=== PATIENT | male | born 1965 | race Caucasian/White ===

== ENCOUNTER 2023-06-18 08:47 | Observation (INO) ==
[2023-06-18] MEDS ORDERED: Lactated Ringers 1000 ml BAG 1,000 ML IV ONE ×2 (09:35→11:37)
[2023-06-18] MEDS ORDERED: Ondansetron 4 mg VIAL 2 MG/ML 2 ml VIAL IV ONE ×2 (09:35→13:18)
[2023-06-18 10:23] LABS: ABS Eosinophils 0.2 10^3/uL (0.0-0.5); ABS Lymphocytes 1.5 10^3/uL (1.0-4.8); ABS Monocytes 0.7 10^3/uL (0.0-1.1); ABS Neutrophils 6.6 10^3/uL (1.5-7.6); ABS Nucleated RBC 0.01 10^3/ul; Eosinophil % 2.5 %; Hematocrit 35.5 % (38-53); Hemoglobin 12.2 g/dL (13.2-16.3); Lymphocyte % 16.8 %; Mean Corpuscular Hemoglobin 31.4 pg (27-33); Mean Corpuscular Hgb Conc 34.5 g/dL (31-36); Mean Platelet Volume 8.2 fL (7.5-11.2); Nucleated Red Blood Cells % 0.1 /100 WBC (0.0-0.4); Platelet Count 281 10^3/uL (150-450); Red Cell Distribution Width 13.8 % (12-17)
[2023-06-18 10:39] LABS: Albumin 3.5 g/dL (3.2-5.2); Albumin/Globulin Ratio 1.2 (1-3); C Reactive Protein 56.41 mg/L (<8.01); Calcium 7.7 mg/dL (8.6-10.3); Creatinine, Serum 10.72 mg/dL (0.67-1.17); Globulin 2.9 g/dL (2-4); Potassium 3.5 mmol/L (3.5-5.0); Total Bilirubin 0.6 mg/dL (0.2-1.0); Total Protein 6.4 g/dL (6.4-8.9)
[2023-06-18] MEDS ORDERED: Prochlorperazine 5 mg/ml 2 ml VIAL (10 mg) IV PRN (14:36)
[2023-06-18 14:37] LABS: Alcohol, S < 13 mg/dL (<13)
[2023-06-18] MEDS ORDERED: Ondansetron 4 mg VIAL 2 MG/ML 2 ml VIAL IV PRN (14:37)
[2023-06-18] MEDS ORDERED: Heparin 5000 UNITS/ML 1 mL VIAL SUBCUT SCH (15:00)
[2023-06-18 15:51] LABS: Activated Partial Thrombo Time 30.1 seconds (26.0-38.0); INR 1.05 (0.88-1.18)
[2023-06-18] MEDS: Lactated Ringers 1000 ml BAG 1,000 ML IV SCH ×3 (15:54→20:31)
[2023-06-18 16:23] LABS: Urine Appearance Cloudy; Urine Bilirubin Negative (Negative); Urine Blood 3+ (Negative); Urine Color Amber; Urine Glucose Negative (Negative); Urine Ketones Negative (Negative); Urine Nitrite Negative (Negative); Urine Protein 2+(100 mg/dL) (Negative); Urine Specific Gravity 1.008 (1.002-1.030); Urine Urobilinogen Negative (Negative)
[2023-06-18 16:34] LABS: Urine Bacteria 1+ (Absent); Urine Red Blood Cell Trace(0-2/hpf) (Absent); Urine White Blood Cell 1+(6-10/hpf) (Absent)
[2023-06-18 18:34] LABS: UR Microalbumin (mg/L) 158.7 mg/L; Urine Creatinine 45.81 mg/dL; Urine Microalbumin/Creatinine 346.4 mcg/mg (<31)
[2023-06-18 18:42] LABS: TSH Ultra Thyroid Stim Horm 2.01 mcIU/mL (0.34-5.60)
[2023-06-18 18:53] LABS: Vitamin D Total 25(OH) 26.8 ng/mL (20-50)
[2023-06-18 19:57] LABS: Phosphorus 6.1 mg/dL (2.5-5.0)
[2023-06-18 20:31] LABS: Calcium 7.7 mg/dL (8.6-10.3); Creatinine, Serum 10.42 mg/dL (0.67-1.17); Magnesium 2.6 mg/dL (1.9-2.7); Potassium 3.7 mmol/L (3.5-5.0); eGFR CKD-EPI 5.2 (>60)
[2023-06-18] MEDS: MESALAMINE 400 MG PO SCH (21:36)
[2023-06-19] MEDS: Heparin 5000 UNITS/ML 1 mL VIAL SUBCUT SCH ×3 (01:08→18:57)
[2023-06-19] MEDS: Lactated Ringers 1000 ml BAG 1,000 ML IV SCH (02:53)
[2023-06-19 06:14] LABS: Hematocrit 32.9 % (38-53); Hemoglobin 11.6 g/dL (13.2-16.3); Mean Corpuscular Hgb Conc 35.3 g/dL (31-36); Mean Corpuscular Volume 90.5 fL (80-97); Platelet Count 259 10^3/uL (150-450); Red Blood Count 3.64 10^6/uL (4.06-5.63); Red Cell Distribution Width 13.7 % (12-17)
[2023-06-19 06:16] LABS: INR 1.13 (0.88-1.18)
[2023-06-19 06:33] LABS: Albumin 2.8 g/dL (3.2-5.2); Albumin/Globulin Ratio 1.3 (1-3); Calcium 7.4 mg/dL (8.6-10.3); Creatinine, Serum 10.99 mg/dL (0.67-1.17); Globulin 2.2 g/dL (2-4); Magnesium 2.5 mg/dL (1.9-2.7); Phosphorus 5.1 mg/dL (2.5-5.0); Potassium 3.8 mmol/L (3.5-5.0); Total Bilirubin 0.5 mg/dL (0.2-1.0); eGFR CKD-EPI 4.9 (>60)
[2023-06-19 06:35] LABS: CKMB ng/mL 61.3 ng/mL (0.6-6.3)
[2023-06-19] MEDS: MESALAMINE 400 MG PO SCH ×2 (11:14→22:01)
[2023-06-19] MEDS ORDERED: Heparin *DIALYSIS* ONLY 1,000 UNITS/ML VIAL DIALYSIS PRN (12:12)
[2023-06-19] MEDS ORDERED: Albumin Human 25% 25 GM/100 ML BTL IV PRN (12:12)
[2023-06-19] MEDS ORDERED: NS 0.9% 1000 ml BAG 200 ML IV PRN (12:12)
[2023-06-19] MEDS ORDERED: NS 0.9% 1000 ml BAG 100 ML IV PRN (12:12)
[2023-06-19 12:56] LABS: Hepatitis B Surface Antigen Nonreactive (Nonreactive)
[2023-06-19 13:13] LABS: Hepatitis B Surface Ab Not Immune (Immune)
[2023-06-19] MEDS: Heparin 1,000 UNIT/ML 10 ml (10,000 UNITS) CATHLAB/DIALYSIS DIALYSIS PRN ×4 (14:30→18:00)
[2023-06-19 15:41] LABS: Calcium 7.4 mg/dL (8.6-10.3); Creatinine, Serum 11.14 mg/dL (0.67-1.17); Magnesium 2.5 mg/dL (1.9-2.7); Potassium 3.5 mmol/L (3.5-5.0); eGFR CKD-EPI 4.8 (>60)
[2023-06-20] MEDS: Heparin 5000 UNITS/ML 1 mL VIAL SUBCUT SCH (02:00)
[2023-06-20 05:52] LABS: Hematocrit 28.7 % (38-53); Hemoglobin 10.4 g/dL (13.2-16.3); Mean Corpuscular Hemoglobin 32.8 pg (27-33); Mean Corpuscular Hgb Conc 36.4 g/dL (31-36); Mean Corpuscular Volume 90.1 fL (80-97); Mean Platelet Volume 8.3 fL (7.5-11.2); Platelet Count 220 10^3/uL (150-450); Red Blood Count 3.18 10^6/uL (4.06-5.63); Red Cell Distribution Width 13.7 % (12-17)
[2023-06-20 05:57] VITALS: BP 110/68
[2023-06-20 06:17] LABS: Albumin 2.6 g/dL (3.2-5.2); Albumin/Globulin Ratio 1.3 (1-3); Calcium 7.2 mg/dL (8.6-10.3); Direct Bilirubin 0.2 mg/dL (0.03-0.18); Indirect Bilirubin 0.4 mg/dL (0.3-1.0); Total Bilirubin 0.6 mg/dL (0.2-1.0); Total Protein 4.6 g/dL (6.4-8.9); eGFR CKD-EPI 6.2 (>60)
[2023-06-20] MEDS: MESALAMINE 400 MG PO SCH (08:32)
[2023-06-20 23:43] LABS: Anaplasma phagocytophilum Negative (Negative); B. miyamotoi PCR, B Negative (Negative); Babesia divergens/MO-1 Negative (Negative); Babesia ducani Negative (Negative); Ehrlichia chaffeensis Negative (Negative); Ehrlichia ewingii/canis Negative (Negative); Ehrlichia muris eauclairensis Negative (Negative)
== END 2023-06-20 08:50 | disposition short-term general hospital (02) ==
LOC: ED 08:47 → EDHOLD 08:47 → SUATTDRO 14:19 → SSU 16:22
PROVIDERS: ADMIT Internal Medicine; ATTEND Hospitalist